=== PATIENT | female | born 1950 | race Caucasian/White ===

== ENCOUNTER → 2017-08-10 | Outpatient (CLI) | payer MEDICARE, OTHER ==
[~2017-08-10] MED LIST: ASPIR 8181 MG PO; ATORVASTATIN CA40 MG PO; BUSPIRONE HCL10 MG PO; CITALOPRAM HBR20 MG PO; CLOPIDOGREL75 MG PO; CYCLOBENZAPRINE10 MG PO; ISOSORBIDE MONO30 MG PO; LEVOTHYROXINE75 MCG PO; METOPROLOL TART25 MG PO; PANTOPRAZOLE SO40 MG PO
--- NOTE | 2017-08-10 09:36 | Diagnostic Imaging Report ---
EXAM: DXA BONE DENSITY INDICATIONS: Menopausal COMPARISON: None. FINDINGS: Proximal left femur bone mineral density (BMD) (g/cm2):0.706 Femur T-score (standard deviation relative to young adult mean BMD): -1.9 Femur Z-score (standard deviation relative to age-matched control group):-0.7 Lumbar bone mineral density (BMD) (g/cm2):0.745 Lumbar T-score (standard deviation relative to young adult mean BMD): -2.7 Lumbar Z-score (standard deviation relative to age-matched control group):-1 CONCLUSION: WHO bone mineral classification: Osteoporosis World Health Organization Classification: *The Z-score is provided for informational purposes. The T-score is preferable for clinical decisions. When comparing exams, a change of >4% is considered statistically significant. WHO RECOMMENDATIONS: Normal \T\ Osteopenia:Calcium supplementation, daily multiple vitamins, and adequate exercise as preventive measures against osteoporosis. Osteoporosis \T\ Severe Osteoporosis:In addition to the above, pharmacologic therapy. Dictated by: Sumit Marvin M.D. on 08/10/2017 at 9:36 Electronically approved by: Sumit Marvin M.D. on 08/10/2017 at 9:36
--- NOTE | 2017-08-11 18:10 | Diagnostic Imaging Report ---
#[id number] - MGSCRBIL #BILATERAL DIGITAL SCREENING MAMMOGRAM WITH CAD: 08/10/2017 CLINICAL: Routine screening. No prior exams were available for comparison. Current study contains 4 films. The tissue of both breasts is predominantly fatty. Current study was also evaluated with a Computer Aided Detection (CAD) system. There are benign calcifications in both breasts. No significant masses, calcifications, or other findings are seen in either breast. IMPRESSION: BENIGN There is no mammographic evidence of malignancy. A 1 year screening mammogram is recommended. The patient will be notified by letter of the results. Javier guzman/prosper:08/11/2017 11:05:48 Ladderman: Regina IBRAHIM(R)(M), [facility] letter sent: Normal Exam Mammogram BI-RADS: 2 Benign
== END ==
LOC: MAMMO 08:10
PROVIDERS: ATTEND Specialist
DX: Z12.31 Encounter for screening mammogram for malignant neoplasm of breast (principal); Z13.820 Encounter for screening for osteoporosis; Z78.0 Asymptomatic menopausal state
CPT/HCPCS: 77067; 77080